=== PATIENT | female | born 2000 | race African-American/Black ===

== ENCOUNTER 2024-01-11 04:43 | Emergency (ER) | payer MEDICAID, OTHER ==
[~2024-01-11] VITALS: Ht 162.6 cm; Wt 42.3 kg
[2024-01-11 04:44] VITALS: O2SAT 98
[2024-01-11] MEDS: IBUPROFEN 600MG TABLET PO ONE (06:00)
[2024-01-11 06:35] LABS: BASOPHILS % 0.4 % (0.0-2.0); HEMATOCRIT. 35.8 % (36.0-48.0); HEMOGLOBIN. 12.4 g/dL (12.0-16.0); LYMPHOCYTES % 8.4 % (20.0-50.0); MEAN CORPUSCULAR HEMOGLOBIN 30.6 pg (28.0-32.0); MEAN CORPUSCULAR HGB CONC 34.6 g/dL (31.0-37.0); MEAN CORPUSCULAR VOLUME 88.6 fL (81.0-99.0); MEAN PLATELET VOLUME 7.2 fl (7.4-10.4); MONOCYTES % 11.6 % (2.0-8.0); NEUTROPHILS % 78.6 % (40.0-76.0); PLATELET 476 x1000/uL (130-400); RED BLOOD CELL COUNT 4.04 mill/uL (4.2-5.4); RED CELL DISTRIBUTION WIDTH 13.7 % (11.6-14.6); WHITE BLOOD COUNT 10.5 x1000/uL (4.5-11.0)
[2024-01-11 06:43] LABS: CHLORIDE 100 mEq/L (98-107); POTASSIUM 3.4 mEq/L (3.5-5.1); SODIUM 136 mEq/L (136-145)
[2024-01-11 06:44] LABS: CARBON DIOXIDE 25 mEq/L (21-32)
[2024-01-11 06:45] LABS: CALCIUM 9.4 mg/dL (8.7-10.4)
[2024-01-11 06:49] LABS: CREATININE 0.6 mg/dL (0.6-1.0); GLUCOSE 88 mg/dL (70-105); UREA NITROGEN BLOOD 8 mg/dL (9-23)
[2024-01-11 06:51] LABS: ALANINE AMINOTRANSFERASE 39 IU/L (10-49); ASPARTATE AMINOTRANSFERASE 73 IU/L (<34)
[2024-01-11 06:52] LABS: BILIRUBIN TOTAL 0.6 mg/dL (0.1-1.0); PROTEIN TOTAL 7.5 g/dL (6.0-8.3)
[2024-01-11 07:32] LABS: HCG SCREEN NEGATIVE
[2024-01-11 07:57] LABS: TROPONIN I HIGH SENSITIVITY < 4 ng/L (3.0-34)
[2024-01-11] MEDS ORDERED: CEFP200T13 MT (09:00)
[2024-01-11] MEDS ORDERED: AZIT250T12 MT (09:00)
[2024-01-11 09:16] VITALS: BP 122/68; PULSE 84; RESP 18; TEMP 36.89184; O2SAT 98
[2024-01-11] MEDS ORDERED: IOHEXOL-350 100 ML BOTTLE ONE (12:54)
[2024-01-12] MEDS ORDERED: ALBU90AE INH (06:00)
[2024-01-12] MEDS ORDERED: GUAI600T26 MT (06:00)
[2024-01-12] MEDS ORDERED: ACET-2708 MT (06:00)
== END 2024-01-11 09:34 | disposition home or self-care (01) ==
LOC: ER 04:43
DX: J18.9 Pneumonia, unspecified organism (principal); Z98.890 Other specified postprocedural states
CPT/HCPCS: 99285; 71275; 71045; 80053; 84703; 83880; 85025; 85379; 84484; 36415; 93005; Q9967

== ENCOUNTER 2024-01-12 03:38 | Emergency (ER) | payer OTHER ==
[~2024-01-12] VITALS: Ht 167.6 cm; Wt 50.0 kg
[~2024-01-12 03:38] MED LIST: AZIT250T12 MT; CEFP200T13 MT
[2024-01-12 03:48] VITALS: O2SAT 100
[2024-01-12 04:06] LABS: BASOPHILS % 0.4 % (0.0-2.0); EOSINOPHILS % 1.5 % (0.0-5.0); HEMOGLOBIN. 12.2 g/dL (12.0-16.0); LYMPHOCYTES % 10.9 % (20.0-50.0); MEAN CORPUSCULAR HEMOGLOBIN 30.2 pg (28.0-32.0); MEAN CORPUSCULAR HGB CONC 33.9 g/dL (31.0-37.0); MEAN CORPUSCULAR VOLUME 89.2 fL (81.0-99.0); MEAN PLATELET VOLUME 7.1 fl (7.4-10.4); MONOCYTES % 12.2 % (2.0-8.0); PLATELET 498 x1000/uL (130-400); RED BLOOD CELL COUNT 4.03 mill/uL (4.2-5.4); RED CELL DISTRIBUTION WIDTH 14.1 % (11.6-14.6); WHITE BLOOD COUNT 10.6 x1000/uL (4.5-11.0)
[2024-01-12 04:11] LABS: CHLORIDE 104 mEq/L (98-107); POTASSIUM 3.5 mEq/L (3.5-5.1); SODIUM 138 mEq/L (136-145)
[2024-01-12 04:12] LABS: CARBON DIOXIDE 27 mEq/L (21-32)
[2024-01-12 04:17] LABS: CREATININE 0.6 mg/dL (0.6-1.0); GLUCOSE 111 mg/dL (70-105); UREA NITROGEN BLOOD 6 mg/dL (9-23)
[2024-01-12 04:37] LABS: TROPONIN I HIGH SENSITIVITY < 4 ng/L (3.0-34)
[2024-01-12 04:47] LABS: HCG SCREEN NEGATIVE
[2024-01-12] MEDS: IBUPROFEN 600MG TABLET PO NR (05:35)
[2024-01-12] MEDS ORDERED: ACET-2708 MT (06:00)
[2024-01-12] MEDS ORDERED: GUAI600T26 MT (06:00)
[2024-01-12] MEDS ORDERED: ALBU90AE INH (06:00)
[2024-01-12 06:30] VITALS: BP 111/66; PULSE 71; RESP 16; TEMP 36.61404; O2SAT 100
[2024-01-12 08:20] LABS: *AMPHETAMINES SCREEN URINE NEGATIVE (NEGATIVE); *BARBITURATES SCREEN URINE NEGATIVE (NEGATIVE); *BENZODIAZEPINES SCREEN URINE NEGATIVE (NEGATIVE); *COCAINE SCREEN URINE NEGATIVE (NEGATIVE); CANNABINOID URINE SCREEN PRESUMPTIVE POSITIVE (NEGATIVE); ECSTASY MDMA SCREEN URINE NEGATIVE (NEGATIVE); METHADONE URINE SCREEN NEGATIVE (NEGATIVE); OPIATES URINE SCREEN NEGATIVE (NEGATIVE); PHENCYCLIDINE URINE SCREEN NEGATIVE (NEGATIVE)
== END 2024-01-12 11:46 | disposition home or self-care (01) ==
LOC: ER 03:38
DX: R07.89 Other chest pain (principal); F41.9 Anxiety disorder, unspecified; Z00.00 Encounter for general adult medical examination without abnormal findings
CPT/HCPCS: 36415; 71045; 80048; 80305; 83880; 84484; 84703; 85025; 93005; 99285